=== PATIENT | female | born 1965 | race Caucasian/White ===

== ENCOUNTER 2023-06-04 19:55 | Emergency (ER) | payer OTHER ==
[~2023-06-04] VITALS: Ht 160 cm; Wt 89.8 kg
[~2023-06-04 19:55] MED LIST: ACET-8905 PO; CEPH250C16 PO
[2023-06-04 20:03] VITALS: BP 137/84; PULSE 60; RESP 16; TEMP 97.4; O2SAT 98
[2023-06-04] MEDS ORDERED: TETRACAINE HCL/PF 0.5% OPTH 4 ML BTL OP ONE (22:10)
[2023-06-04] MEDS ORDERED: FLUORESCEIN OPTH STRIP 1 MG OP ONE (22:10)
[2023-06-04] MEDS ORDERED: CIPR7.5D2 OT (23:12)
[2023-06-04] MEDS ORDERED: ACET-11169 PO (23:12)
[2023-06-05] MEDS ORDERED: CIPR7.5D2 OT (19:11)
[2023-06-05] MEDS ORDERED: ACET-11169 PO (19:11)
== END 2023-06-04 23:49 | disposition home or self-care (01) ==
LOC: MED 19:55
DX: S05.01XA Injury of conjunctiva and corneal abrasion without foreign body, right eye, initial encounter (principal); X58.XXXA Exposure to other specified factors, initial encounter; Y93.89 Activity, other specified; Y92.89 Other specified places as the place of occurrence of the external cause; Y99.8 Other external cause status
CPT/HCPCS: 99283